=== PATIENT | female | born 1985 | race Caucasian/White ===

== ENCOUNTER 2025-02-02 09:55 | Emergency (ER) | payer BC, SELFPAY ==
[2025-02-02 10:24] VITALS: BP 136/97; PULSE 78; RESP 19; TEMP 36.8; O2SAT 98
--- NOTE | 2025-02-02 10:31 | XR_ITS ---
Examination: CT abdomen and pelvis without contrast. Coronal 3-D reconstructions. Sagittal 2-D reconstructions. Date and time of exam:February 02, 2025 1149 hours Comparison February 13, 2024 INDICATIONS: Right-sided flank pain today, history 3 mm proximal left ureteral calculus on CT stone study February 13, 2024 CTDI: vol (mGy): 14.7 DLP: (mGycm): 867 Technique: Axial images of the abdomen have been obtained, 3 mm slice thickness Intravenous contrast material has not been administered. Low dose protocols were performed. One or more of the following dose reduction techniques were used; automated exposure control, adjustment of the mA and/or KV according to patient size, use of iterative reconstruction technique. Findings: No focal liver or splenic lesions No gallstones No pancreatic or adrenal mass Numerous bilateral subcentimeter renal calculi Mild right hydronephrosis secondary to 3 mm proximal right ureteral calculus Aorta normal size No bowel obstruction Normal appendix Contracted urinary bladder IMPRESSION: Mild right hydronephrosis secondary to 3 mm proximal right ureteral calculus
--- NOTE | 2025-02-02 10:39 | PD.EDRME ---
Rapid Medical Screening Exam RME Arrival date/time: 02/02/25 09:55 39-year-old female presents to the emergency department today for complaints of right-sided flank pain patient reports history of kidney stone Chief Complaint: Urogenital-Female Time Seen by Provider: 02/02/25 09:59 Vital signs: Vital Signs Temperature 98.2 F 02/02/25 10:24 Pulse Rate 78 02/02/25 10:24 Respiratory Rate 19 02/02/25 10:24 Blood Pressure 136/97 H 02/02/25 10:24 Pulse Oximetry (%) 98 02/02/25 10:24 Oxygen Delivery Method Room Air 02/02/25 10:24
[2025-02-02] MEDS: KETOROLAC INJ 60 MG/2 ML VIAL 30 MG IM (10:49)
[2025-02-02 11:18] LABS: Collection Type, Urine Clean Catch
[2025-02-02 11:27] LABS: HCG Qualitative,Urine Negative
[2025-02-02 11:30] LABS: Amorphous Crystals,Urine Present (Absent); Bacteria,Urine Rare; Bilirubin,Urine Negative (Negative); Blood,Urine 3+ (Negative); Clarity,Urine Turbid (Clear/Hazy); Color,Urine Yellow (Lt Yel-Yel); Culture Indicated,Urine Contaminated; Glucose, Urine Negative (Negative); Ketones,Urine Trace (Negative); Leukocyte Esterase,Urine Positive (Negative); Nitrite,Urine Negative (Negative); PH,Urine 6.0 (5.0-7.0); Protein,Urine 1+ (Neg - Trace); RBC,Urine 440 /hpf (0-3); Specific Gravity,Urine 1.026 (1.001-1.035); Squamous Epithelial Cell,Urine 28 /hpf (0-5); Urobilinogen,Urine Negative mg/dL (0.0-1.0); WBC,Urine 43 /hpf (0-5)
[2025-02-02 11:32] LABS: Basophils # (Auto) 0.0 Thou/mm3 (0.0-0.2); Basophils % (Auto) 0 % (0-2.5); Eosinophils # (Auto) 0.0 Thou/mm3 (0.0-0.5); Eosinophils % (Auto) 0 % (0-10); Hematocrit 44.4 % (36.0-46.0); Hemoglobin 14.4 g/dL (12.0-16.0); Immature Granulocytes Auto 0.06 Thou/mm3 (0.00-0.00); Lymphocytes # (Auto) 1.4 Thou/mm3 (1.0-4.8); Lymphocytes % (Auto) 11 % (10-50); Mean Corpuscular HGB Conc 32.4 g/dl (31.0-37.0); Mean Corpuscular Hemoglobin 25.0 pg (25.0-35.0); Mean Corpuscular Volume 77 fL (80-100); Monocytes # (Auto) 0.5 Thou/mm3 (0.0-0.8); Monocytes % (Auto) 4 % (0-12); Neutrophils # (Auto) 10.3 Thou/mm3 (1.8-7.7); Neutrophils % (Auto) 84 % (37-80); Nucleated Red Blood Cell # 0.00 Thou/mm3 (0.00-0.00); Nucleated Red Blood Cell % 0 /100 WBC (0); Platelet Count 303 Thou/mm3 (140-440); RDW Standard Deviation 39.1 fL (36.4-46.3); Red Blood Count 5.75 Miln/mm3 (4.00-5.20); White Blood Count 12.2 Thou/mm3 (3.6-11.0)
[2025-02-02 11:53] LABS: Alanine Aminotransferase 12 U/L (10-49); Albumin, Serum 4.5 gm/dL (3.5-5.0); Albumin/Globulin Ratio 1.5 (1.2-2.2); Alkaline Phosphatase 79 U/L (46-116); Anion Gap 9 (7-16); Aspartate Amino Transferase 18 U/L (0-34); BUN/Creatinine Ratio 14 Ratio (12-20); Bilirubin,Total 0.5 mg/dL (0.3-1.2); Blood Urea Nitrogen 11 mg/dL (9-23); Calcium 9.8 mg/dL (8.3-10.6); Calcium (Corrected) 9.8 mg/dL (8.5-10.1); Carbon Dioxide 25.4 mMol/L (20.0-31.0); Chloride 108 mMol/L (98-107); Creatinine (Component) 0.8 mg/dL (0.6-1.3); Globulin 3.0 gm/dL (2.3-3.5); Glucose 114 mg/dL (74-106); Lipase 36 U/L (12-53); Osmolality,Calculated 283 (275-295); Potassium 4.2 mMol/L (3.4-5.1); Sodium 142 mMol/L (136-145); Total Protein 7.5 gm/dL (5.7-8.2); eGFR > 60 See Note
--- NOTE | 2025-02-02 12:20 | EDNOTE_ITS ---
ED Female Urogenital RME/HPI General Chief complaint: Urogenital-Female Stated complaint: Right flank pain, poss. kidney stone Time Seen by Provider: 02/02/25 09:59 Arrival date/time: 02/02/25 09:55 RME / HPI RME / HPI Narrative: 39-year-old female presents to the emergency department today for complaints of right-sided flank pain, onset of symptoms earlier today, severity of symptoms moderate. Patient denies any fever denies any hematuria denies any dysuria denies any vomiting. Patient reports history of kidney stone Related Data Previous Rx's ?Medication ?Instructions ?Recorded hydrocodone 5 mg-acetaminophen 325 1 tab PO BID PRN pa in #14 tabs 09/22/19 mg tablet ([place]) ibuprofen 800 mg tablet 800 mg PO TID PRN pain #30 t abs 09/22/19 ondansetron HCl 4 mg tablet 4 mg PO QID PRN nausea and 09/22/19 (Zofran) vomiting #20 tabs tamsulosin 0.4 mg capsule (Flomax) 0.4 mg PO QDAY #20 caps 09/22/19 tamsulosin 0.4 mg capsule (Flomax) 0.4 mg PO QDAY #14 caps 08/12/22 IBU 800 mg tablet (ibuprofen) 800 mg PO Q6H PRN pain # 30 tabs 02/13/24 ondansetron 4 mg disintegrating 4 mg PO Q8H PRN nausea and 02/13/24 tablet vomiting #10 tabs tamsulosin 0.4 mg capsule (Flomax) 0.4 mg PO QDAY #14 caps 02/13/24 ketorolac 10 mg tablet 10 mg PO TID PRN pain 5 days #20 02/02/25 tabs tamsulosin 0.4 mg capsule (Flomax) 0.4 mg PO QDAY #10 caps 02/02/25 Allergies Allergy/AdvReac Type Severity Reaction Status Date / Time No Known Allergies Allergy Verified 02/02/25 09:59 Review of Systems Review of Systems Narrative Review of Systems: Review of system reviewed and within normal limits except mentioned in HPI ED Exam Narrative Physical exam: VITAL SIGNS: Reviewed. GENERAL APPEARANCE: Alert and interactive, follows commands, no acute distress, HEAD AND FACE: Non-traumatic. ENT: PERRL, pink conjunctivitis, eyelid no trauma, Mucous membrane moist. NECK: Supple, nontender, no nuchal rigidity. CHEST: No tenderness, no crepitus, no paradoxical movement, no retractions. LUNGS: Clear, well ventilated, symmetric, no rales, no wheezing, no ronchi, no stridor, good breath sounds bilaterally. HEART: Regular rate, regular rhythm, no murmur, no gallops. ABDOMEN: Soft, positive bowel sounds, nondistended, no guarding, nontender, no rebound, no masses, right CVA tenderness RECTAL: Deferred. GENITAL: Deferred. NEUROLOGICAL: Gross motor function intact sensory function intact, Appropriate for age. MUSCULOSKELETAL: low back nontender, full range of motion. EXTREMITIES: Nontender, full range of motion. SKIN: Color pink, dry, no rash, no lacerations, no abrasions, no contusions. LYMPHATICS: Deferred. Course Quality Measures none Orders Category Date Time Status CT abdomen pelvis wo con Stat Exams 02/02/25 10:31 Completed CBC Stat Lab 02/02/25 11:12 Completed Comprehensive Metabolic Panel Stat Lab 02/02/25 11:12 Completed HCG Qualitative,Urine Stat Lab 02/02/25 10:50 Completed Lipase Stat Lab 02/02/25 11:12 Completed UA, C/S IF [Urinalysis, C/S if Indicated] Stat Lab 02/02/25 10:50 Completed HYDROcodone/APAP 10/325 [[place] 10/325] Med 02/02/25 12:19 Once 1 tab PO X1 ONE Ketorolac Inj [Toradol Inj] Med 02/02/25 10:31 Discontinued 30 mg IM X1 ONE Vital Signs Vital signs: Vital Signs Temperature 98.2 F 02/02/25 10:24 Pulse Rate 78 02/02/25 10:24 Respiratory Rate 19 02/02/25 10:24 Blood Pressure 136/97 H 02/02/25 10:24 Pulse Oximetry (%) 98 02/02/25 10:24 Oxygen Delivery Method Room Air 02/02/25 10:24 Urogenital - Female MDM Narrative MDM Narrative:: 39-year-old female presents to the emergency department today for complaints of right-sided flank pain, onset of symptoms earlier today, severity of symptoms moderate. Patient denies any fever denies any hematuria denies any dysuria denies any vomiting. Patient reports history of kidney stone Patient's laboratory workup came back with slight leukocytosis, urinalysis positive hematuria and it is contaminated no UTI. Patient CT scan of the abdomen pelvis showed 3 mm stone on the right ureter. Otherwise unremarkable. Patient was given Toradol IM and [place] with complete resolution of symptoms. Patient was advised to follow-up with urologist. Patient agrees with the plan Patient data External records reviewed:: None Clinical information provided by:: none Social determinants that could affect healthcare access:: none Patient has the following chronic illnesses:: History of kidney stone How is presenting disease/condition affected by chronic disease/condition?: exacerbated by Evaluation data The following diagnostics were reviewed and interpreted by me:: lab results and radiology exam(s) Lab and/or radiology exams considered but not ordered:: None Interpretation Summary: See results MDM Medications / Prescriptions Medications or Prescriptions considered but not ordered:: None Medication administrations:: Medication Administration History Hydrocodone Bitart/Acetaminophen (Hydrocodone/Apap 10/325 Tab) 1 tab PO X1 ONE Stop: 02/02/25 12:20 Discontinued Medications Ketorolac Tromethamine (Ketorolac Inj 60 Mg/2 Ml Vial) 30 mg IM X1 ONE Stop: 02/02/25 10:32 Last Admin: 02/02/25 10:49 Dose: 30 mg Documented By: Toradol [place] Consultations Consultation(s) initiated? (list below): No Diagnosis Urogenital Female Differential Diagnosis: urinary tract infection and cyst of Bartholin's gland (Renal colic, ureterolithiasis) Most likely diagnosis given after review of the tests above:: Ureterolithiasis Admission Indicated Admission indicated?: not indicated Admission Request Was there a request for admission?: No Disposition Plan Disposition Plan: Discharge Discharge Attestation Discharge Attestation: The patient and all family members were given an opportunity to ask questions and understood the discharge instructions. Discharge instructions specifically effects, indications for sooner follow up or return to the emergency department, and the expected course of current diagnosis. Patient condition: Stable Discharge Plan Plan Patient Disposition: HOME (Self Care) Prescriptions/Referrals Prescriptions/Med Rec: New ketorolac 10 mg tablet 10 mg PO TID PRN (Reason: pain) 5 Days Qty: 20 0RF tamsulosin [Flomax] 0.4 mg capsule 0.4 mg PO QDAY Qty: 10 0RF No Action ibuprofen 800 mg tablet 800 mg PO TID PRN (Reason: pain) Qty: 30 0RF hydrocodone-acetaminophen [[place]] 5-325 mg tablet 1 tab PO BID MDD 4 PRN (Reason: pain) Qty: 14 0RF ondansetron HCl [Zofran] 4 mg tablet 4 mg PO QID PRN (Reason: nausea and vomiting) Qty: 20 0RF tamsulosin [Flomax] 0.4 mg capsule,extended release 24hr 0.4 mg PO QDAY Qty: 20 0RF Rx Instructions: administer 30 minutes after same meal each day; swallow whole with liquid; do not crush/chew/dissolve/open tamsulosin [Flomax] 0.4 mg capsule 0.4 mg PO QDAY Qty: 14 0RF ondansetron 4 mg tablet,disintegrating 4 mg PO Q8H PRN (Reason: nausea and vomiting) Qty: 10 0RF ibuprofen [IBU] 800 mg tablet 800 mg PO Q6H PRN (Reason: pain) Qty: 30 0RF tamsulosin [Flomax] 0.4 mg capsule 0.4 mg PO QDAY Qty: 14 0RF Referrals: No Primary/Family,Physician [Primary Care Provider] - In 1 week Problem List Clinical Impression: Ureterolithiasis Patient/Caregiver Discharge Instructions Discharge Activity: activity as tolerated Education Materials: Kidney Stones Expectant Tx Additional Instructions: Thank you for the opportunity for serving you today. You are stable for discharged . You are advised to: Follow-up with your PCP in 1 to 2 days and ask for referral to urologist Return to ED for worsening of symptoms Increase oral fluids Take medication as prescribed Strain your urine to collect the stone for your urologist visit Print Language: Khmer Stand Alone Forms: [facility] Award Info., Patient Portal Info Letter
== END 2025-02-02 12:40 | disposition home or self-care (01) ==
PROVIDERS: Nurse Practitioner Primary Care; Emergency Provider Family Medicine
DX: N13.2 Hydronephrosis with renal and ureteral calculous obstruction (principal)
CPT/HCPCS: 36415; 74176; 80053; 81001; 81025; 83690; 85025; 96372; 99283; J1885; A9270